=== PATIENT | female | born 1955 | race Caucasian/White ===

== ENCOUNTER → 2020-10-04 | Day surgery (SDC) | payer OTHER ==
[~2020-10-04] MED LIST: AIRBORNE GUMMI1 EACH PO; AMBEREN; ASPIRIN325 PO; BASAGLAR K100 UNIT/1 SUBQ; LISINOPRIL10 MG PO; LUTEIN6 MG; MULTIVITAMIN W1 EAC2 PO; NEURONTIN 300M300 M2 PO; NORCO5 PO; OCUVITE ADULT1 EAC1 PO; VICODIN 5-5001 EACH PO
[2020-10-04 09:00] LABS: HEMATOCRIT 43.5 % (37.0-47.0); HEMOGLOBIN 14.9 gm/dL (12.0-15.0); MCH 31.2 pg (26.0-34.0); MCHC 34.3 g/dL (28.0-37.0); MPV 7.5 fl. (7.2-11.1); RBC 4.78 mil/uL (4.20-5.00); RDW-CV 13.5 % (10.5-14.5); WBC 3.9 thou/uL (4.0-11.0)
[2020-10-04 09:32] LABS: CALCIUM 8.2 mg/dL (8.5-10.1); POTASSIUM 4.2 mmol/L (3.5-5.1)
--- NOTE | 2020-10-04 12:05 | EKG ---
[place] [address] ELECTROCARDIOGRAM REPORT Name: DEMAR MARIA Room: [facility]#: [id number] Admission: 10/04/20 Attend Phys: Doug Rascon Discharge: Date of : 55 Date of Service: 10/04/20 0854 Report #: [id number] THIS REPORT FOR: //name// 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
== END | disposition home or self-care (01) ==
LOC: M.SUR 08:32
PROVIDERS: ATTEND Surgery
DX: K43.2 Incisional hernia without obstruction or gangrene (principal); Z53.9 Procedure and treatment not carried out, unspecified reason; Z20.822 Contact with and (suspected) exposure to COVID-19; Z98.890 Other specified postprocedural states; Z79.899 Other long term (current) drug therapy; Z88.2 Allergy status to sulfonamides

== ENCOUNTER 2020-10-07 06:51 | Emergency (ER) | payer OTHER ==
[~2020-10-07] VITALS: Ht 157.5 cm; Wt 124.7 kg
[2020-10-07 07:46] LABS: ABSOLUTE LYMPHOCYTES 0.5 thou/uL (0.8-5.3); ABSOLUTE MONOCYTES 0.5 thou/uL (0.0-1.2); ABSOLUTE NEUTROPHILS 2.2 thou/uL (1.6-8.1); BASOPHILS 0.5 %; EOSINOPHILS 0.2 %; HEMATOCRIT 42.9 % (37.0-47.0); HEMOGLOBIN 14.6 gm/dL (12.0-15.0); LYMPHOCYTES 17.1 %; MCH 31.3 pg (26.0-34.0); MCHC 34.2 g/dL (28.0-37.0); MCV 91.7 fL (80.0-100.0); MONOCYTES 14.8 %; MPV 7.5 fl. (7.2-11.1); NUCLEATED RBCS 0 /100WBC; PLATELET COUNT* 191 thou/uL (150-400); POLYS 67.4 %; RBC 4.68 mil/uL (4.20-5.00); RDW-CV 12.8 % (10.5-14.5); WBC 3.2 thou/uL (4.0-11.0)
[2020-10-07 08:10] LABS: ALBUMIN 3.3 g/dL (3.4-5.0); TOTAL BILIRUBIN 0.5 mg/dL (<0.1-1.0); TOTAL PROTEIN 7.7 g/dL (6.4-8.2)
[2020-10-07 09:00] LABS: URINE BILIRUBIN NEGATIVE (Negative); URINE BLOOD NEGATIVE (Negative); URINE CLARITY CLEAR; URINE COLOR YELLOW; URINE GLUCOSE-RANDOM NEGATIVE (Negative); URINE KETONES 1+ (Negative); URINE LEUKOCYTES-REFLEX 1+ (Negative); URINE PROTEIN NEGATIVE (Negative); URINE UROBILINOGEN 0.2 E.U./dl (0.2-1.0)
[2020-10-07 09:03] LABS: URINE NITRITE-REFLEX POSITIVE (Negative)
[2020-10-07 09:08] LABS: SQUAMOUS 0-3 Few /LPF (0-3); URINE WBC-REFLEX 0-5 Rare /HPF (0-5)
[2020-10-07 09:09] LABS: BACTERIA-REFLEX >30 Many /HPF (None Seen); CRYSTALS None Seen /LPF (None Seen); HYALINE CASTS 0-3 Few /LPF (None Seen); MUCUS None Seen strn/LPF (None Seen); URINE RBC None Seen /HPF (0-2)
[2020-10-07] MEDS ORDERED: ZOFRAN ODT4 MG DISSOLVE (09:11)
[2020-10-07] MEDS ORDERED: CEPHALEXIN500 MG PO (09:11)
--- NOTE | 2020-10-07 09:47 | EKG ---
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 10/07/20 0946 5 5 Tanvir Dacosta MD, [facility] /EPI
[2020-10-07 10:18] VITALS: BP 144/79
== END 2020-10-07 10:19 | disposition home or self-care (01) ==
LOC: M.ERS 06:51
PROVIDERS: Emergency Medicine Emergency Medical Services
DX: U07.1 COVID-19 (principal); N39.0 Urinary tract infection, site not specified; E11.40 Type 2 diabetes mellitus with diabetic neuropathy, unspecified; I10 Essential (primary) hypertension; Z88.2 Allergy status to sulfonamides; Z90.710 Acquired absence of both cervix and uterus

== ENCOUNTER 2020-10-12 11:58 | Emergency (ER) | payer OTHER ==
[~2020-10-12] VITALS: Ht 157.5 cm; Wt 124.7 kg
[~2020-10-12 11:58] MED LIST changes: +CEPHALEXIN500 MG PO; +ZOFRAN ODT4 MG DISSOLVE
[2020-10-12 15:14] LABS: HEMATOCRIT 44.3 % (37.0-47.0); HEMOGLOBIN 15.2 gm/dL (12.0-15.0); MCH 31.2 pg (26.0-34.0); MCHC 34.3 g/dL (28.0-37.0); MCV 90.9 fL (80.0-100.0); MPV 7.5 fl. (7.2-11.1); NUCLEATED RBCS 0 /100WBC; PLATELET COUNT* 261 thou/uL (150-400); RBC 4.88 mil/uL (4.20-5.00); RDW-CV 12.6 % (10.5-14.5); WBC 5.8 thou/uL (4.0-11.0)
[2020-10-12 15:26] LABS: CALCIUM 8.3 mg/dL (8.5-10.1); CREATININE 0.7 mg/dL (0.6-1.3); POTASSIUM 3.4 mmol/L (3.5-5.1)
[2020-10-12 15:36] LABS: ALBUMIN 3.5 g/dL (3.4-5.0); MAGNESIUM 2.2 mg/dL (1.8-2.4); TOTAL BILIRUBIN 0.7 mg/dL (<0.1-1.0); TOTAL PROTEIN 7.5 g/dL (6.4-8.2)
[2020-10-12 16:14] LABS: ABSOLUTE LYMPHOCYTES 1.5 thou/uL (0.8-5.3); ABSOLUTE MONOCYTES 0.5 thou/uL (0.0-1.2); ABSOLUTE NEUTROPHILS 3.9 thou/uL (1.6-8.1)
[2020-10-12 16:15] LABS: PLATELET ESTIMATE ADEQUATE
[2020-10-12] MEDS ORDERED: VENTOLIN HFA 1818 GM INH (16:34)
[2020-10-12] MEDS ORDERED: FLEXERIL PO (16:34)
[2020-10-12] MEDS ORDERED: TRANSDERM-SCOP1 EACH TRANSDERM (16:34)
[2020-10-12] MEDS ORDERED: PHENERGAN 25 MG25 M1 PO (16:34)
[2020-10-12] MEDS ORDERED: ZOFRAN ODT4 MG PO (16:34)
[2020-10-12 18:08] VITALS: BP 186/93
--- NOTE | 2020-10-13 12:47 | EKG ---
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 10/13/20 1247 1212 121 Humberto Lundberg MD, [facility] /EPI
[2020-10-15] MEDS ORDERED: ELIQUIS5 MG PO (12:22)
== END 2020-10-12 17:30 | disposition home or self-care (01) ==
LOC: M.ERS 11:58
PROVIDERS: Nurse Practitioner Family
DX: B34.9 Viral infection, unspecified (principal); H81.10 Benign paroxysmal vertigo, unspecified ear; I10 Essential (primary) hypertension; Z88.2 Allergy status to sulfonamides; Z79.84 Long term (current) use of oral hypoglycemic drugs; E11.9 Type 2 diabetes mellitus without complications; Z98.890 Other specified postprocedural states; Z90.710 Acquired absence of both cervix and uterus

== ENCOUNTER 2020-10-13 19:15 | Inpatient (IN) | payer OTHER ==
[~2020-10-13] VITALS: Ht 157.5 cm; Wt 119.7 kg
[~2020-10-13 19:15] MED LIST changes: +FLEXERIL PO; +PHENERGAN 25 MG25 M1 PO; +TRANSDERM-SCOP1 EACH TRANSDERM; +VENTOLIN HFA 1818 GM INH; +ZOFRAN ODT4 MG PO
[2020-10-13 20:11] LABS: ABSOLUTE BASOPHILS 0.1 thou/uL (0.0-0.2); ABSOLUTE LYMPHOCYTES 1.2 thou/uL (0.8-5.3); ABSOLUTE MONOCYTES 0.8 thou/uL (0.0-1.2); ABSOLUTE NEUTROPHILS 3.5 thou/uL (1.6-8.1); EOSINOPHILS 0.8 %; HEMATOCRIT 40.4 % (37.0-47.0); LYMPHOCYTES 21.3 %; MCH 31.3 pg (26.0-34.0); MCHC 34.6 g/dL (28.0-37.0); MCV 90.4 fL (80.0-100.0); MONOCYTES 14.7 %; MPV 7.3 fl. (7.2-11.1); NUCLEATED RBCS 0 /100WBC; PLATELET COUNT* 267 thou/uL (150-400); POLYS 62.2 %; RBC 4.47 mil/uL (4.20-5.00); RDW-CV 12.3 % (10.5-14.5); WBC 5.7 thou/uL (4.0-11.0)
[2020-10-13 20:20] LABS: BE 7.4 mmol/L (-2 to +3); PCO2 41.8 mmHg (35.0-45.0); pH 7.494 (7.340-7.450)
[2020-10-13 20:23] LABS: CALCIUM 7.7 mg/dL (8.5-10.1); CREATININE 0.9 mg/dL (0.6-1.3)
[2020-10-13 20:26] LABS: POTASSIUM 2.5 mmol/L (3.5-5.1)
[2020-10-13 20:27] LABS: PO2 56.3 mmHg (75.0-100.0)
[2020-10-13 20:28] LABS: ALBUMIN 2.9 g/dL (3.4-5.0); MAGNESIUM 1.7 mg/dL (1.8-2.4); TOTAL BILIRUBIN 0.6 mg/dL (<0.1-1.0); TOTAL PROTEIN 6.6 g/dL (6.4-8.2)
[2020-10-13 23:59] LABS: URINE BILIRUBIN NEGATIVE (Negative); URINE BLOOD NEGATIVE (Negative); URINE CLARITY CLEAR; URINE COLOR YELLOW; URINE GLUCOSE-RANDOM NEGATIVE (Negative); URINE KETONES TRACE (Negative); URINE LEUKOCYTES-REFLEX NEGATIVE (Negative); URINE NITRITE-REFLEX NEGATIVE (Negative); URINE PROTEIN NEGATIVE (Negative)
[2020-10-14] VITALS (7 sets, daily range): BP systolic 127–189; BP diastolic 49–111
--- NOTE | 2020-10-14 15:12 | EKG ---
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1955 Requested By: Shayan Smith Order Number: [id number] Reading MD: Humberto Lundberg Measurements Intervals [place] Rate: 74 P: -40 MO: 162 QRS: -23 QRSD: 84 T: -58 QT: 451 QTc: 501 Interpretive Statements Sinus rhythm Inferior infarct, age indeterminate Prolonged QT interval Baseline wander in lead(s) I,III,aVL,aVF Compared to ECG 10/12/2020 12:12:05 Prolonged QT interval now present Myocardial infarct finding still present Electronically Signed On 10-14-2020 15:12:07 CDT by Humberto Lundberg [email or web address] <ELECTRONICALLY SIGNED> By: Humberto Lundberg MD, [facility] 10/14/20 1512 40 40 Humberto Lundberg MD, [facility] /EPI
[2020-10-15] VITALS: BP 113/61
[2020-10-15 02:31] LABS: ABSOLUTE LYMPHOCYTES 1.5 thou/uL (0.8-5.3); ABSOLUTE NEUTROPHILS 3.5 thou/uL (1.6-8.1); BASOPHILS 0.7 %; EOSINOPHILS 0.6 %; HEMOGLOBIN 12.1 gm/dL (12.0-15.0); MCH 31.3 pg (26.0-34.0); MCHC 32.8 g/dL (28.0-37.0); MPV 7.6 fl. (7.2-11.1); NUCLEATED RBCS 0 /100WBC; PLATELET COUNT* 233 thou/uL (150-400); POLYS 57.7 %; RBC 3.87 mil/uL (4.20-5.00); RDW-CV 13.1 % (10.5-14.5); WBC 6.1 thou/uL (4.0-11.0)
[2020-10-15 02:41] LABS: MCV 95.5 fL (80.0-100.0)
[2020-10-15 02:47] LABS: ALBUMIN 2.5 g/dL (3.4-5.0); CALCIUM 7.8 mg/dL (8.5-10.1); TOTAL BILIRUBIN 0.3 mg/dL (<0.1-1.0); TOTAL PROTEIN 5.7 g/dL (6.4-8.2)
[2020-10-15 02:50] LABS: POTASSIUM 3.2 mmol/L (3.5-5.1)
[2020-10-15 04:37] VITALS: BP 105/44
[2020-10-15 08:00] VITALS: BP 154/69
[2020-10-15] MEDS ORDERED: ELIQUIS5 MG PO ×2 (12:22)
[2020-10-15 12:37] VITALS: BP 127/67
[2020-10-15 17:21] VITALS: BP 187/85
[2020-10-15 17:59] VITALS: BP 187/85
== END 2020-10-15 18:25 | disposition home or self-care (01) | DRG 177 ==
LOC: M.ERS 19:15 → M.ORTHSURG 22:15 → M.TBA-ER 22:15 → M.ORTHSURG 10-14 12:20
PROVIDERS: Personal Emergency Response Attendant; ADMIT Internal Medicine; ATTEND Internal Medicine
PROC: XW033E5 Introduction of Remdesivir Anti-infective into Peripheral Vein, Percutaneous Approach, New Technology Group 5 (ICD-10-PCS; principal; 2020-10-14)
DX: U07.1 COVID-19 (principal); J12.82 Pneumonia due to coronavirus disease 2019; J96.01 Acute respiratory failure with hypoxia; I26.99 Other pulmonary embolism without acute cor pulmonale; Z68.42 Body mass index [BMI] 45.0-49.9, adult; R65.10 Systemic inflammatory response syndrome (SIRS) of non-infectious origin without acute organ dysfunction; E11.40 Type 2 diabetes mellitus with diabetic neuropathy, unspecified; E66.01 Morbid (severe) obesity due to excess calories; G47.33 Obstructive sleep apnea (adult) (pediatric); I10 Essential (primary) hypertension; E87.6 Hypokalemia; Z90.710 Acquired absence of both cervix and uterus; Z79.4 Long term (current) use of insulin; Z79.899 Other long term (current) drug therapy; Z88.2 Allergy status to sulfonamides